=== PATIENT | female | born 1960 | race African-American/Black ===

== ENCOUNTER 2018-02-20 15:21 | Emergency (ER) | payer OTHER ==
[2018-02-20] MEDS ORDERED: TETRACAINE HCL 0.5% OPH SOLN 4 ML OS ONE (16:07)
--- NOTE | 2018-02-20 16:07 | ER Document Report ---
HPI - HPI Patient complains to provider of: Left eye redness Onset: Yesterday Onset/Duration: Gradual Quality of pain: No pain Pain Level: Denies Context: Patient presents complaining of left eye redness and swelling to the eyelids. Patient states that she did wake up and had matting to the left eye. Patient denies any contact lens use but does wear reading glasses. Patient denies any trauma to the eye. Patient also reports that her blood pressure was elevated today. Patient denies any previous history of hypertension. Patient denies any headache, chest pain, back pain or urinary symptoms. Associated Symptoms: Other - Left eye redness. denies: Fever Exacerbated by: Denies Relieved by: Denies Similar symptoms previously: No Recently seen / treated by doctor: No - ROS ROS below otherwise negative: Yes Systems Reviewed and Negative: Yes All other systems reviewed and negative - CONSTITUTIONAL Constitutional: DENIES: Fever - EENT EENT: REPORTS: Eye problems - NEURO Neurology: DENIES: Headache - CARDIOVASCULAR Cardiovascular: DENIES: Chest pain - RESPIRATORY Respiratory: DENIES: Trouble Breathing, Coughing - GASTROINTESTINAL Gastrointestinal: DENIES: Abdominal Pain - MUSCULOSKELETAL Musculoskeletal: DENIES: Back Pain - DERM Skin Color: Normal Skin Problems: None Past Medical History - General Information source: Patient - Social History Smoking Status: Never Smoker Frequency of alcohol use: None Drug Abuse: None 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 IN LAST 30 DAYS: No - HEENT HEENT: Atraumatic, Normocephalic Notes: Sclera to left eye injected, swelling to conjunctive of left eye with small amount of crusted drainage to eyelashes. Extraocular movements intact, Britta. No corneal abrasion, ulcer, foreign body or dendrite. Pressure measured at 19 with a confidence interval of 95%. - NECK Neck: Normal Inspection, Supple - RESPIRATORY Respiratory: Breath Sounds Normal, No Respiratory Distress - CARDIOVASCULAR Cardiovascular: Regular Rate, Regular Rhythm, No Murmur - GI/ABDOMEN Gastrointestinal: Abdomen Soft - MUSCULOSKELETAL/EXTREMETIES Musculoskeletal/Extremeties: MAEW - NEURO Level of Consciousness: Awake, Alert, Appropriate Motor/Sensory: No Motor Deficit - DERM Integumentary: Warm, Dry Course - Vital Signs Vital signs: Temp Pulse Resp BP Pulse Ox 98.8 F 65 16 182/98 H 100 02/20/18 15:27 02/20/18 15:27 02/20/18 15:27 02/20/18 15:27 02/20/18 15:27 - Laboratory Result Diagrams: 02/20/18 16:50 Discharge - Discharge Clinical Impression: Elevated blood pressure reading Conjunctivitis Qualifiers: Conjunctivitis type: acute Acute conjunctivitis type: unspecified Laterality: left Qualified Code(s): H10.32 - Unspecified acute conjunctivitis, left eye Condition: Stable Disposition: HOME, SELF-CARE Instructions: Conjunctivitis ([facility]), Eyedrop Use ([facility]), High Blood Pressure ([facility] ) Additional Instructions: Return immediately for any new or worsening symptoms Followup with your primary care provider, call tomorrow to make a followup appointment Follow-up with your sign builder for recheck Your blood pressure was elevated today, have your primary doctor recheck this. Limit sodium in your diet Prescriptions: Polymyxin B Sulfate/Tmp [Polytrim Oph Soln 10 ml] 1 drop LFT_EYE ASDIR #1 bottle Referrals: FLOYD MCGUIRE DO [Primary Care Provider] - Follow up tomorrow
[2018-02-20] MEDS ORDERED: CLONIDINE HCL 0.1 MG TABLET PO ONE (16:46)
[2018-02-20 17:22] LABS: ANION GAP 7 (5-19); BLOOD UREA NITROGEN 13 mg/dL (7-20); CALCIUM 9.8 mg/dL (8.4-10.2); CARBON DIOXIDE 28 mmol/L (22-30); CHLORIDE 105 mmol/L (98-107); GLUCOSE 81 mg/dL (75-110); POTASSIUM 4.1 mmol/L (3.6-5.0); SODIUM 139.8 mmol/L (137-145)
[2018-02-20 18:24] VITALS: BP 180/95
== END 2018-02-20 18:24 | disposition home or self-care (01) ==
LOC: ER 15:21
DX: H10.32 Unspecified acute conjunctivitis, left eye (principal); R03.0 Elevated blood-pressure reading, without diagnosis of hypertension
CPT/HCPCS: 99283; 36415; 80048; J3490

== ENCOUNTER 2020-04-07 09:31 | Emergency (ER) | payer OTHER ==
[2020-04-07] MEDS ORDERED: KETOROLAC TROMETHAMINE 60 MG/2 ML SDV IM ONE (10:19)
--- NOTE | 2020-04-07 10:24 | ER Document Report ---
ED General - General Chief Complaint: Foot Pain Stated Complaint: LEFT FOOT PAIN,SWELLING Time Seen by Provider: 04/07/20 10:13 Primary Care Provider: [facility] [Primary Care Provider] - Follow up as needed TRAVEL OUTSIDE OF THE [place] IN LAST 30 DAYS: No - HPI Notes: Chief complaint: Swelling left foot History of present illness: Previously healthy 59-year-old female taking no regular medications with no known allergies presents now with 3-day history of soft tissue swelling and pain over left MTP joint. Denies trauma. Denies any known history of gout. She took some [id number] ibuprofen with minimal relief of her discomfort which she presently describes as 6/10 intensity. No fever, chills, nausea or vomiting. - Related Data Allergies/Adverse Reactions: benzoyl peroxide Allergy (Verified 04/07/20 09:45) Past Medical History - General Information source: Patient, Relative - Social History Smoking Status: Never Smoker Frequency of alcohol use: Rare Drug Abuse: None Lives with: Family Family History: Reviewed & Not Pertinent - Medical History Medical History: Negative Renal/ Medical History: Denies: Hx Peritoneal Dialysis Past Surgical History: Reports: Hx Section Review of Systems - Review of Systems Notes: Constitutional: Negative for fever. HENT: Negative for sore throat. Eyes: Negative for visual changes. Cardiovascular: Negative for chest pain. Respiratory: Negative for shortness of breath. Gastrointestinal: Negative for abdominal pain, vomiting or diarrhea. Genitourinary: Negative for dysuria. Musculoskeletal: As per HPI. Skin: As per HPI. Neurological: Negative for headaches, weakness or numbness. 10 point ROS negative except as marked above and in HPI. Physical Exam - Vital signs Vitals: Temp Pulse Resp BP Pulse Ox 99.1 F 93 16 147/85 H 100 04/07/20 09:45 04/07/20 09:45 04/07/20 09:45 04/07/20 09:45 04/07/20 09:45 - Notes Notes: GENERAL: Well-developed well-nourished female appearing stated age in moderate discomfort holding left foot area. SKIN: Mild redness over right MTP joint. Good turgor no rashes. HEAD: Normocephalic atraumatic. EYES: PERRLA. EOMI. Conjunctivae and sclerae clear. NECK: Supple. No masses or thyromegaly. No adenopathy. Carotids 2+ without bruits. No JVD. BACK: Symmetrical without tenderness. CHEST: Respirations unlabored. Breath sounds clear and symmetrical. HEART: Regular rhythm. No murmur gallop or rub. ABDOMEN: Soft nontender without masses, organomegaly or rebound. Bowel sounds normally active. No bruits. EXTREMITIES: Redness, soft tissue swelling and tenderness right first MTP joint. No calf tenderness. Cap refill less than 1.5 seconds. Dorsalis pedis and posterior tibial pulses 3+ and symmetrical. NEUROLOGICAL: Alert and oriented x3. Nonfocal. PSYCHIATRIC: Appropriate affect. Course - Re-evaluation Re-evalutation: 04/07/20 12:30 Initial differential diagnosis was gout, pseudogout, contusion, cellulitis, occult fracture. Patient received IM Toradol with good relief of pain. Plain films of the foot remarkable only for some mild soft tissue swelling with no evidence of fracture or dislocation or any retained foreign body. Serum urate was normal. She did not have a fever or elevation of white count. Her sed rate was mildly elevated as was her CRP. I explained to the patient that even though her urate is not elevated there is still possibility this could be gout. I cannot totally rule out cellulitis either. I suggested that she elevate the foot at home and apply ice packs. I am going to keep her on some NSAID and I am also going to give her some oral Keflex. We reviewed red flags symptoms for early return here. 3-day work note. Referral to PMD for follow-up within the next 3 to 5 days. Findings, clinical impression and plan of treatment have been discussed with patient/family. Understanding of current findings and recommendations has been acknowledged by them and there is agreement regarding disposition and follow-up. - Vital Signs Vital signs: Temp Pulse Resp BP Pulse Ox 99.1 F 93 16 147/85 H 100 04/07/20 09:45 04/07/20 09:45 04/07/20 09:45 04/07/20 09:45 04/07/20 09:45 - Laboratory Result Diagrams: 04/07/20 11:10 04/07/20 11:10 Laboratory results interpreted by me: 04/07/20 04/07/20 11:10 11:10 RDW 14.5 H Calcium 10.3 H C-Reactive Protein 23.3 H Total Protein 8.6 H Albumin 5.1 H Discharge - Discharge Clinical Impression: Cellulitis left foot Condition: Stable Disposition: HOME, SELF-CARE Additional Instructions: Elevate foot and apply ice packs. Take prescribed medications. You will be provided a work note for the next 3 days. Take prescribed medications as instructed. Follow-up with your primary care physician within the next 3 to 5 days. Return here as needed for new or worsening symptoms: Increased pain and swelling of the foot Red streaks progressing up the leg Pain that is worsening or unimproved Uncontrolled vomiting High fever or shaking chills Overall worsening Prescriptions: Ketorolac Tromethamine [Toradol 10 mg Tablet] 10 mg PO Q6HP PRN 10 Days #20 tablet PRN Reason: Cephalexin Monohydrate [Keflex 500 mg Capsule] 500 mg PO Q6H 10 Days #40 capsule Forms: Return to Work Referrals: [facility] [Primary Care Provider] - Follow up as needed
[2020-04-07 11:28] LABS: ABSOLUTE BASOPHILS # (AUTO) 0.1 10^3/uL (0.0-0.2); ABSOLUTE MONOCYTES (AUTO) 0.5 10^3/uL (0.1-1.4); ABSOLUTE NEUT (AUTO) 5.5 10^3/uL (1.7-8.2); BASOPHILS % (AUTO) 0.8 % (0-2); EOSINOPHILS % (AUTO) 0.3 % (0-6); HEMATOCRIT 41.4 % (36.0-47.0); HEMOGLOBIN 13.7 g/dL (12.0-15.5); LYMPHOCYTES % (AUTO) 24.4 % (13-45); MEAN CORPUSCULAR HEMOGLOBIN 27.5 pg (27.0-33.4); MEAN CORPUSCULAR HGB CONC 33.1 g/dL (32.0-36.0); MEAN CORPUSCULAR VOLUME 83 fl (80-97); MONOCYTES % (AUTO) 5.6 % (3-13); PLATELET COUNT 248 10^3/uL (150-450); RED BLOOD COUNT 4.98 10^6/uL (3.72-5.28); RED CELL DISTRIBUTION WIDTH 14.5 % (11.5-14.0); SEGMENTED NEUTROPHILS % (AUTO) 68.9 % (42-78); TOTAL CELLS COUNTED % (AUTO) 100 %
--- NOTE | 2020-04-07 11:48 | RADIOLOGY REPORT (SQ) ---
EXAM DESCRIPTION: FOOT LEFT COMPLETE IMAGES COMPLETED DATE/TIME: 04/07/2020 10:26 am REASON FOR STUDY: pain/swelling right MTP area. No known injury. Swelling at the 1st metatarsophal angeal joint space for 1 day. COMPARISON: None. NUMBER OF VIEWS: Three views. TECHNIQUE: AP, lateral and oblique radiographic images acquired of the left foot. LIMITATIONS: None. FINDINGS: MINERALIZATION: Osteopenia. BONES: No acute fracture or dislocation. No worrisome bone lesions. Small plantar calcaneal spur. JOINTS: No effusions. SOFT TISSUES: Soft tissue swelling at the forefoot. No radiopaque foreign body. OTHER: No other significant finding. IMPRESSION: Soft tissue swelling at the forefoot. No acute fracture or radiopaque foreign body. TECHNICAL DOCUMENTATION: JOB ID: [id number] [employer]- All Rights Reserved Reading location - IP/workstation name: [email or web address]
[2020-04-07 11:55] LABS: ALBUMIN 5.1 g/dL (3.5-5.0); ALKALINE PHOSPHATASE 94 U/L (38-126); ANION GAP 12 (5-19); ASPARTATE AMINO TRANSFERASE 32 U/L (14-36); BILIRUBIN,DIRECT 0.1 mg/dL (0.0-0.4); BILIRUBIN,TOTAL 0.6 mg/dL (0.2-1.3); BLOOD UREA NITROGEN 13 mg/dL (7-20); C-REACTIVE PROTEIN 23.3 mg/L (<10.0); CALCIUM 10.3 mg/dL (8.4-10.2); CARBON DIOXIDE 28 mmol/L (22-30); CHLORIDE 102 mmol/L (98-107); GLUCOSE 102 mg/dL (75-110); POTASSIUM 4.2 mmol/L (3.6-5.0); TOTAL PROTEIN 8.6 g/dL (6.3-8.2); URIC ACID 3.7 mg/dL (2.5-7.5)
[2020-04-07 12:05] LABS: ERYTHROCYTE SEDIMENTATION RATE 19 mm/hr (0-30)
[2020-04-07 13:06] VITALS: BP 168/84
== END 2020-04-07 13:04 | disposition home or self-care (01) ==
LOC: ER 09:31
DX: L03.116 Cellulitis of left lower limb (principal); M79.672 Pain in left foot
CPT/HCPCS: 99284; 96372; 36415; 84550; 85025; 85652; 86140; 80053; 73630; J1885